=== PATIENT | male | born 1965 | race African-American/Black ===

== ENCOUNTER 2018-07-29 17:38 | Inpatient (IN) | payer OTHER ==
[~2018-07-29] VITALS: Ht 177.8 cm; Wt 96.2 kg
--- NOTE | ~2018-07-29 | OP ---
[facility] [address] [place] [address] OPERATIVE REPORT Name: THERESA SANDS Room: [address] IN .R.#: [id number] Admission: 07/29/18 Attend Phys: Azar Cobos MD Discharge: Date of : 63 Report #: [id number] THIS REPORT FOR: //name// CC: Azar Cobos [facility] Physician staff Primary Care Physician DICTATED BY: Blake Chino DO DATE OF SERVICE: 07/31/2018 PREOPERATIVE DIAGNOSIS: Acute cholecystitis with cholelithiasis. POSTOPERATIVE DIAGNOSIS: Acute cholecystitis with cholelithiasis. PRIMARY SURGEON: Sonny Thomson DO TREE TOPPER: Neel Chino, PGY-4; Danika Hardwick, PGY-1. OPERATION PERFORMED: Laparoscopic cholecystectomy. ANESTHESIA: General and local. ESTIMATED BLOOD LOSS: 20 mL. SPECIMENS REMOVED: Gallbladder and contents. COMPLICATIONS: None. DISPOSITION: PACU, returned to the floor and hopefully discharged home later today. DESCRIPTION OF PROCEDURE: After appropriate consents were obtained, this patient was taken to the operating room, laid in supine position. He had SCDs placed on bilateral lower extremities and a safety strap placed across his lap. All lines were placed by Anesthesia. The patient's arms were placed out at his side. He was then sedated and intubated by Anesthesia without difficulty. He had a foot plate placed at the end of his bed and secured tightly. His abdomen was then prepped and draped in a standard sterile fashion. A timeout was performed to correctly identify the patient and procedure. The patient did receive an additional dose of perioperative antibiotics. He was also getting antibiotics on the floor. We started with a supraumbilical midline incision, which was approximately 1.5 cm. This was carried down through the subcutaneous tissue using electrocautery until we encountered the anterior abdominal wall fascia. Once the fascia was encountered, it was [place] [address] OPERATIVE REPORT Name: THERESA SANDS Room: [address]#: [id number] Admission: 07/29/18 Attend Phys: Azar Cobos MD Discharge: Date of : 63 Report #: [id number] and then grasped between 2 Tesha clamps. We entered the patient's intra-abdominal cavity using a hemostat bluntly. We then placed 2 separate 0 Vicryl sutures at the inferior and superior aspect of the fascia to act as stay sutures for Eladio trocar. We then introduced the Eladio trocar into the abdomen and insufflated the balloon. The patient's abdomen was then insufflated to 15 mmHg. We secured our Eladio trocar with the 0 Vicryl sutures we had placed previously. Using the camera, we did initial inspection of the intra-abdominal organs and noticed any significant abnormalities besides some omentum overlying the gallbladder. We then placed a subxiphoid port, which was a 5 mm port under direct visualization. We were able to use a blunt grasper to sweep down the omentum and elevate the liver to view the gallbladder. The gallbladder was distended and acutely inflamed with some notable gallstones. It was at this time we placed our 2 right-sided lateral abdominal wall ports under direct visualization. Both of these were also 5 mm ports. The gallbladder was then grasped and elevated cephalad and anteriorly. We were able to grasp Patty pouch and retract it medially and we were able to dissect out along the lateral side of the gallbladder staying high up on the gallbladder. We then turned our attention more medially and were able to dissect out the cystic duct as well as cystic artery. We did visualize the common bile duct, which was coursing well below this. After we had dissected out our cystic duct and cystic artery, we were able to visualize the inferior edge of the liver and see only 2 structures going directly into the gallbladder, which confirmed our critical view. After the critical view was obtained, we then placed clips on our cystic duct and cystic artery. One clip was placed proximally on the cystic artery and one clip distally. Two clips were placed proximally and one distally on the cystic duct. It was at this time that we carefully dissected the gallbladder off the liver bed. Any bleeding that was occurring was adequately controlled using electrocautery. The gallbladder was completely removed from the liver bed and placed in an EndoCatch pouch. Once the gallbladder was contained in the EndoCatch pouch, we then turned our attention back to our liver bed and our clips. We visualized our clips, which appeared to be in place. There was no active oozing or bleeding from either the cystic duct or the cystic artery. The liver bed was dry and there was a minimal amount of bleeding along the lateral aspect of the edge of the liver, which was adequately controlled again using electrocautery. We thoroughly irrigated and suctioned away any free fluid. We looked once again at our clips and again did not appear to be any bleeding or oozing. Any free fluid that was present was suctioned away free. We returned the patient to normal position and removed all fluid from Oliver pouch. We allowed the liver to return to its normal anatomical position. We then placed the omentum back in its place along the gallbladder fossa. We then watched our trocars to be removed under direct visualization to ensure there was no active bleeding and none was present. We did allow the patient's abdomen to desufflate and further monitored our incision sites and no bleeding was occurring. We then removed the gallbladder from the supraumbilical incision site without difficulty. He did have some very large stones, which made it somewhat of a task to remove the gallbladder from our supraumbilical incision, [place] [address] OPERATIVE REPORT Name: THERESA SANDS Room: [address] IN [facility]#: [id number] Admission: 07/29/18 Attend Phys: Azar Cobos MD Discharge: Date of : 63 Report #: [id number] without difficulty. We then placed 2 separate 0 Vicryl sutures in a pzinfu-bd-torha fashion within the fascia. This was done while the fascia was being elevated between the previously placed 0 Vicryl sutures at the beginning of the case. The subcutaneous tissue of this incision was then closed using inverted interrupted 3-0 Vicryl suture. The skin was closed using a running subcuticular 4-0 Monocryl suture. Each of the other incision sites were closed using inverted interrupted 4-0 Monocryl suture. The patient's abdomen was then cleaned and dried adequately. Mastisol, Steri-Strips, sterile Tegaderm was applied. We then placed gauze and tape to act as a further pressure dressing over the incision sites. The patient tolerated the procedure well. All counts were correct x 2 at the end of this procedure. Dr. Sonny Thomson was present for the entirety of this procedure. The patient was then allowed to awaken and was subsequently extubated in the OR. He was transferred to the PACU in stable condition and returned to the floor for further recovery. If he does well this evening and even tonight, he can possibly go home. By: 1421 [id number] Thomson, /nt
[2018-07-29 17:38] VITALS: BP 142/92
[~2018-07-29 17:38] MED LIST: CITRATE OF MAG296 ML PO; IBUPROFEN 600600 M1 PO; NORCO 5-325 TA1 EACH PO
[2018-07-29 18:10] LABS: ABSOLUTE BASOPHILS 0.1 thou/uL (0.0-0.2); ABSOLUTE EOSINOPHILS 0.1 thou/uL (0.0-0.7); ABSOLUTE LYMPHOCYTES 3.4 thou/uL (0.8-5.3); ABSOLUTE MONOCYTES 0.5 thou/uL (0.0-1.2); ABSOLUTE NEUTROPHILS 5.5 thou/uL (1.6-8.1); BASOPHILS 0.6 %; EOSINOPHILS 0.9 %; HEMATOCRIT 46.5 % (42.0-52.0); HEMOGLOBIN 15.8 gm/dL (14.0-18.0); MCH 31.8 pg (26.0-34.0); MCV 93.5 fL (80.0-100.0); MONOCYTES 4.9 %; MPV 8.1 fl. (7.2-11.1); NUCLEATED RBCS 0 /100WBC; PLATELET COUNT* 220 thou/uL (150-400); POLYS 57.6 %; RBC 4.97 mil/uL (4.50-6.00); RDW-CV 13.4 % (10.5-14.5); WBC 9.6 thou/uL (4.0-11.0)
[2018-07-29 18:18] LABS: ANION GAP 10 mmol/L (7-16); BUN 24 mg/dL (7-18); CALCIUM 9.6 mg/dL (8.5-10.1); CHLORIDE 106 mmol/L (98-107); CO2 23 mmol/L (21-32); CREATININE 1.3 mg/dL (0.6-1.3); GLUCOSE 122 mg/dL (70-99); POTASSIUM 3.2 mmol/L (3.5-5.1); SODIUM 139 mmol/L (136-145)
[2018-07-29 18:33] LABS: ALBUMIN 3.6 g/dL (3.4-5.0); ALKALINE PHOSPHATASE 70 U/L (46-116); LIPASE 202 U/L (73-393); SGOT 88 U/L (15-37); SGPT 67 U/L (30-65); TOTAL BILIRUBIN 0.4 mg/dL (<0.1-1.0); TOTAL PROTEIN 7.5 g/dL (6.4-8.2); TROPONIN-I LEVEL <0.06 ng/mL (<0.06)
[2018-07-29 20:38] LABS: URINE BILIRUBIN NEGATIVE (Negative); URINE BLOOD NEGATIVE (Negative); URINE CLARITY CLEAR; URINE COLOR YELLOW; URINE GLUCOSE-RANDOM NEGATIVE (Negative); URINE KETONES NEGATIVE (Negative); URINE LEUKOCYTES-REFLEX NEGATIVE (Negative); URINE NITRITE-REFLEX NEGATIVE (Negative); URINE PROTEIN NEGATIVE (Negative); URINE UROBILINOGEN 0.2 E.U./dl (0.2-1.0)
[2018-07-29 21:40] VITALS: BP 166/106
[2018-07-29 22:00] VITALS: BP 185/110
[2018-07-29] MEDS ORDERED: HYDROCHLOROTHIA25 M1 PO (22:50)
[2018-07-29] MEDS ORDERED: NIFEDIPINE ER90 M1 PO (22:53)
[2018-07-30] VITALS: BP 130/89
[2018-07-30 04:32] LABS: HEMOGLOBIN 15.2 gm/dL (14.0-18.0); MCH 32.1 pg (26.0-34.0); MCHC 34.5 g/dL (28.0-37.0); MCV 93.1 fL (80.0-100.0); MPV 8.4 fl. (7.2-11.1); RBC 4.73 mil/uL (4.50-6.00); RDW-CV 13.3 % (10.5-14.5); WBC 7.4 thou/uL (4.0-11.0)
[2018-07-30 04:54] LABS: ALBUMIN 3.3 g/dL (3.4-5.0); CALCIUM 9.3 mg/dL (8.5-10.1); CREATININE 1.1 mg/dL (0.6-1.3); POTASSIUM 4.1 mmol/L (3.5-5.1); TOTAL BILIRUBIN 0.7 mg/dL (<0.1-1.0); TOTAL PROTEIN 6.5 g/dL (6.4-8.2)
--- NOTE | 2018-07-30 05:20 | NUR ---
PATIENT ARRIVED TO UNIT @2153 walked to bed with no complications. PT HAD JUST RECIEVED PAIN MEDICATION IN ER. HAD 0/10 PAIN. PT BLOOD PRESSURE WAS ELEVATED CALLED ORDERS GIVEN. BP NOW WITHIN NORMAL LIMITS. HAS NOT COMPLAINED OF N&V THIS SHIFT. FLUIDS INFUSING. NO CURRENT VOICED CONCERNS AT THIS TIME. CALL LIGHT WITH IN REACH. BED TO LOWEST POSITION. WILL CONTINUE TO MONITOR.
[2018-07-30 08:15] VITALS: BP 112/81
--- NOTE | 2018-07-30 11:34 | EKG ---
[place] [address] ELECTROCARDIOGRAM REPORT Name: THERESA SANDS Room: [address] ADM IN .R.#: [id number] Admission: 07/29/18 Attend Phys: Azar Cobos MD Discharge: Date of : 63 Report #: [id number] THIS REPORT FOR: //name// [facility] ED Test Date: 2018-07-29 Test Time: 18:28:57 Pat Name: THERESA SANDS Department: Room: [address] Gender: M Dressmaker Or Tailor: : 1965 Requested By: Karla Lane Order Number: [id number] Darling MD: Hernandez Rios Measurements Intervals [place] Rate: 84 P: 4 MI: 212 QRS: -21 QRSD: 96 T: 11 QT: 348 QTc: 412 Interpretive Statements Sinus rhythm Prolonged MI interval Consider left atrial enlargement Left ventricular hypertrophy Inferior infarct, old No previous ECG available for comparison Electronically Signed On 07-30-2018 11:34:38 JAVA SQL DEVELOPER by Hernandez Rios [email or web address] <ELECTRONICALLY SIGNED> By: Hernandez Rios MD, [facility] 07/30/18 1134 [id number] [id number] Hernandez Rios MD, [facility] /EPI
--- NOTE | 2018-07-30 12:04 | NUR ---
SW met with pt to complete initial assessment, introduce self, and SW role. Pt alert, oriented, pleasant. Pt lives at home with his . Pt works on the road as tester/lift trucker. SW discussed smoking as their was a consult, pt does not see his occasional cigar smoking as an issue. Pt independent with mobility and ADLs, pt does not anticipate any dc needs at this time. SW to continue to follow to assist with safe dc planning.
[2018-07-30 16:00] VITALS: BP 175/109
--- NOTE | 2018-07-30 18:16 | NUR ---
PATIENT HAS BEEN A/O X 4 THIS SHIFT. MEDICATED FOR ABDOMINAL PAIN X 2 WITH RELIEF. IV FLUIDS INFUSING, ANTIBIOTICS STARTED. PATIENT STARTED ON LOW FAT DIET AFTER ULTRASOUND COMPLETED THIS SHIFT, NOTED PAIN TO REAPPEAR AFTER EATING. PATIENT TO BE NPO AFTER MIDNIGHT FOR SURGERY IN AM. PATIENT GIVEN PRN HYDRALAZINE FOR ELEVATED BP THIS EVENING. UP AD HUSSEIN IN ROOM. PATIENT AND INFORMED OF TIME OF SURGERY ON SUNDAY. HOURLY ROUNDING COMPLETED. CALL LIGHT WITHIN REACH. WILL CONTINUE WITH PLAN OF CARE.
[2018-07-30 19:12] VITALS: BP 143/86
[2018-07-30 20:05] VITALS: BP 131/84
[2018-07-31] VITALS: BP 131/84; BP 167/102
[2018-07-31 04:53] LABS: HEMATOCRIT 40.8 % (42.0-52.0); HEMOGLOBIN 13.9 gm/dL (14.0-18.0); MCH 31.9 pg (26.0-34.0); MCHC 34.1 g/dL (28.0-37.0); MCV 93.3 fL (80.0-100.0); MPV 8.6 fl. (7.2-11.1); RBC 4.38 mil/uL (4.50-6.00); RDW-CV 13.5 % (10.5-14.5); WBC 4.4 thou/uL (4.0-11.0)
--- NOTE | 2018-07-31 05:24 | NUR ---
PATIENT SLEPT WELL DURING THIS SHIFT. PT ALERT/ORIENTED X4 AND UP AD HUSSEIN. PT TOOK SHOWER AT BEGINNING OF SHIFT. PT WITH FLUIDS/ANTIBIOTICS INFUSING PER DR ORDER. PT MADE NPO AT MIDNIGHT FOR SURGERY TODAY. PT IS ON ROOM AIR. PT DENIED PAIN MEDICATION DURING THIS SHIFT. FREQUENTLY USED ITEMS AND CALL LIGHT WITHIN REACH. SIDERAILS UPX2. WILL CONTINUE TO MONITOR.
[2018-07-31 05:48] LABS: ALBUMIN 2.9 g/dL (3.4-5.0); CALCIUM 8.6 mg/dL (8.5-10.1); POTASSIUM 3.8 mmol/L (3.5-5.1); TOTAL BILIRUBIN 0.6 mg/dL (<0.1-1.0); TOTAL PROTEIN 6.2 g/dL (6.4-8.2)
[2018-07-31 08:45] VITALS: BP 161/111
[2018-07-31 10:50] VITALS: BP 164/110
[2018-07-31 15:20] VITALS: BP 151/90
[2018-07-31 16:08] LABS: HEPATITIS B SURFACE AG Negative (Negative)
--- NOTE | 2018-07-31 19:51 | NUR ---
PATIENT HAS BEEN A/O X 4 THIS SHIFT. PATIENT HAD LAP DOT THIS AFTERNOON. 4 LAP SITES TO ABD CLEAN, DRY AND INTACT. BP REMAINS ELEVATED, STARTED ON METOPROLOL THIS SHIFT. PATIENT ON RA, CAPNO IN PLACE. PATIENT WITH IVF INFUSING. UP WITH ASSIST POST SURGERY TO VOID. MEDICATED FOR PAIN X 1 THIS EVENING WITH RELIEF NOTED. TOLERATING DIET. SCDS IN PLACE. AT BEDSIDE. HOURLY ROUNDING COMPLETED. CALL LIGHT WITHIN REACH. WILL CONTINUE WITH PLAN OF CARE.
[2018-07-31 21:00] VITALS: BP 145/91
[2018-08-01 00:04] VITALS: BP 153/94
[2018-08-01 04:16] LABS: HEMATOCRIT 41.2 % (42.0-52.0); MCH 31.5 pg (26.0-34.0); MCHC 33.8 g/dL (28.0-37.0); MCV 93.1 fL (80.0-100.0); MPV 8.7 fl. (7.2-11.1); RBC 4.43 mil/uL (4.50-6.00); RDW-CV 13.2 % (10.5-14.5); WBC 7.1 thou/uL (4.0-11.0)
[2018-08-01 04:57] LABS: CREATININE 1.2 mg/dL (0.6-1.3); MAGNESIUM 2.1 mg/dL (1.8-2.4); POTASSIUM 4.2 mmol/L (3.5-5.1); TOTAL BILIRUBIN 0.5 mg/dL (<0.1-1.0); TOTAL PROTEIN 6.3 g/dL (6.4-8.2)
[2018-08-01 05:11] VITALS: BP 172/107
--- NOTE | 2018-08-01 07:22 | NUR ---
PATIENT SLEPT MOST OF THE NIGHT. PATIENT WAS GIVEN PAIN MEDICINE ONCE THIS SHIFT. LAP SITES TO ABDOMEN REMAIN DRY AND INTACT. WILL CONTINUE TO MONITOR.
[2018-08-01 07:50] VITALS: BP 165/94
[2018-08-01] MEDS ORDERED: NORCO 5-325 TA1 EACH PO (10:16)
[2018-08-01] MEDS ORDERED: TOPROL XL25 MG PO (10:17)
[2018-08-01 10:18] VITALS: BP 165/94
[2018-08-01] MEDS ORDERED: COLACE100 MG PO (10:21)
[2018-08-01 10:30] VITALS: BP 173/98
--- NOTE | 2018-08-01 10:48 | NUR ---
PATIENT DISCHARGED TO HOME THIS AM. CLEARED BY SURGERY AND HOSPITALIST. LAP SITES X 4 INTACT. PRN HYDROCODONE GIVEN X 1 THIS AM WITH REG DIET, NO COMPLAINTS OF PAIN AFTER GIVEN. IV DC'D. VERBALIZES UNDERSTANDING OF PAPERWORK AND SCRIPTS. PATIENT TAKEN OUT VIA WHEELCHAIR WITH ALL BELONGINGS.
--- NOTE | 2018-08-05 10:06 | PATH ---
[facility] [address] [place] [address] PATHOLOGY RPT PROCEDURE Name: JOSÉ MANUEL SANDS Room: [address] IN M.R.#: [id number] Admission: 07/29/18 Date of : 63 Discharge: 08/01/18 Report #: [id number] Path Case #: [id number] [facility] Accession Number: [id number] . 01 Material submitted: . GALLBLADDER . 01 Clinical history: . Acute cholecystitis with cholelithiasis . 02 Diagnosis: "Gallbladder", cholecystectomy: - Acute and chronic cholecystitis. - Cholelithiasis. . (CLW:at;08/02/2018) QTA/08/02/2018 . 02 Electronically signed: . Alba Vega MD, Pathologist NPI- [id number] . 01 Gross description: . The specimen is received in formalin, labeled "José Manuel Diony, gallbladder". Received is an intact gallbladder measuring 8.6 x 3.4 x 3.2 cm in greatest dimensions displaying pink-maldonado serosal surfaces. Opening the gallbladder reveals a velvety to honeycomb-appearing, pink-dash mucosa with a gallbladder wall thickness of 0.1 cm. Calculi are present displaying a bright yellow and multifaceted appearance, and no masses or lesions are noted grossly. The specimen is submitted representatively in cassette A1. (CAA; 08/01/2018) QAC/QAC . 02 Pathologist provided ICD-10: K80.12 . 02 CPT . 588643 Specimen Comment: A courtesy copy of this report has been sent to Specimen Comment: [phone], , . Specimen Comment: Report sent to ,DR TAMEZ / DR TOMLIN Specimen Comment: A duplicate report has been generated due to demographic updates. Performed at: [address], [place], [place] [id number] MD Solomon Nelson MD Phone: [phone] [place] [address] PATHOLOGY RPT PROCEDURE Name: JOSÉ MANUEL SANDS Room: [address] IN M.R.#: [id number] Admission: 07/29/18 Date of : 63 Discharge: 08/01/18 Report #: [id number] Path Case #: [id number] Performed at: [facility] [address], [place] [id number] MD Armen Yuen MD Phone: [phone]
== END 2018-08-01 10:51 | disposition home or self-care (01) | DRG 418 ==
LOC: M.ERS 17:38 → M.TBA-ER 21:07 → M.3W 21:07
PROVIDERS: Nurse Practitioner Family; Physician Assistant; Surgery; ADMIT Internal Medicine
PROC: 0FT44ZZ Resection of Gallbladder, Percutaneous Endoscopic Approach (ICD-10-PCS; principal; 2018-07-31)
DX: K80.00 Calculus of gallbladder with acute cholecystitis without obstruction (principal); E44.0 Moderate protein-calorie malnutrition; I10 Essential (primary) hypertension; E66.9 Obesity, unspecified; M19.90 Unspecified osteoarthritis, unspecified site; F17.210 Nicotine dependence, cigarettes, uncomplicated; Z68.30 Body mass index [BMI] 30.0-30.9, adult; Z79.899 Other long term (current) drug therapy; Z83.3 Family history of diabetes mellitus